=== PATIENT | female | born 1970 | race Caucasian/White ===

== ENCOUNTER → 2017-07-23 | Outpatient (CLI) | payer OTHER ==
--- NOTE | 2017-07-23 13:03 | RAD ---
Indication back pain. AP and lateral views of the lumbar spine were obtained. No prior imaging is available. Vertebral height and alignment are relatively well maintained. There are some facet degenerative changes in the mid and lower lumbar spine. An acute bony finding is not seen. IMPRESSION: Mild spondylitic changes. No acute finding is seen
== END | disposition home or self-care (01) ==
LOC: RAD 09:29
PROVIDERS: ATTEND Family Medicine
DX: M54.9 Dorsalgia, unspecified (principal)
CPT/HCPCS: 72100